=== PATIENT | female | born 1985 | race Caucasian/White ===

== ENCOUNTER 2020-09-28 20:59 | Inpatient (IN) | payer OTHER ==
[~2020-09-28] VITALS: Ht 154.9 cm; Wt 56.2 kg
[2020-09-28 21:12] VITALS: BP 154/101
[2020-09-28 23:33] LABS: HEMATOCRIT 54.3 % (37.0-47.0); MEAN CELL VOLUME 96.3 fl (81.0-99.0); MEAN CORPUSCULAR HGB 31.7 pg (27.0-31.0); MEAN PLATELET VOLUME 8.9 fl (9.6-12.3); PLATELET COUNT AUTOMATED 376 10*3/uL (130-400); RED BLOOD COUNT 5.64 10*6/uL (4.10-5.10); RED CELL DISTRI WIDTH 13.2 % (0-14.5); WHITE BLOOD COUNT 15.7 10*3/uL (4.8-10.8)
[2020-09-28 23:48] LABS: ALBUMIN 3.9 gm/dl (3.1-4.5); ALKALINE PHOSPHATASE 150 U/L (45-117); BUN 11 mg/dl (7-24); CHLORIDE 101 mmol/L (98-107); CREATININE 0.85 mg/dL (0.55-1.02); POTASSIUM 4.2 mmol/L (3.5-5.1); SGOT/AST 18 IU/L (3-35); SGPT/ALT 31 U/L (12-78); SODIUM 128 mmol/L (136-145); TOTAL PROTEIN 8.7 gm/dL (6.4-8.2)
[2020-09-29 00:03] LABS: PLATELET SUFFICIENCY NORMAL (NORMAL); TOTAL CELLS COUNTED 100 #CELLS
[2020-09-29 00:17] LABS: BILIRUBIN Negative (Negative); BLOOD Trace-Lysed (Negative); CLARITY Clear (Clear); COLOR Yellow (Yellow); GLUCOSE 3+ (Negative); KETONE 4+ (Negative); LEUKO ESTERASE Negative (Negative); NITRITE Negative (Negative); SPECIFIC GRAVITY >= 1.030 (1.001-1.030); UROBILINOGEN 0.2 E.U./dl (0.0-1.0)
[2020-09-29 00:25] LABS: URINE AMPHETAMINES < 1000 (1000ng/ml); URINE BARBITURATES < 200 (200ng/ml); URINE BENZODIAZEPINES < 200 (200ng/ml); URINE CANNABINOIDS (THC) > 50 (50ng/ml); URINE COCAINE < 300 (300ng/ml); URINE METHADONE < 300 (300ng/ml); URINE OPIATES < 300 (300ng/ml); URINE PHENCYCLIDINE < 25 (25ng/ml)
[2020-09-29 00:28] LABS: BACTERIA TRACE
[2020-09-29 00:43] LABS: ARTERIAL BLOOD GAS PO2 127.3 (80-90)
[2020-09-29 00:44] LABS: ARTERIAL BLOOD GAS PH 7.076 (7.35-7.45)
[2020-09-29 00:45] LABS: ABG BASE EXCESS -24.4 mmol/L (-2.0-2.0)
[2020-09-29 03:00] VITALS: BP 145/82
[2020-09-29] MEDS ORDERED: Synthroid,Levo50 MCG PO (03:24)
[2020-09-29] MEDS ORDERED: LANTUS SOL100 UNIT/1 SC (03:26)
[2020-09-29] MEDS ORDERED: INSULIN LI100 UNIT/2 SC (03:30)
[2020-09-29 05:28] LABS: ALBUMIN 3.1 gm/dl (3.1-4.5); ALKALINE PHOSPHATASE 128 U/L (45-117); BUN 11 mg/dl (7-24); CHLORIDE 111 mmol/L (98-107); CHOLESTEROL 379 mg/dL (<200); CREATININE 0.64 mg/dL (0.55-1.02); SGOT/AST 11 IU/L (3-35); SGPT/ALT 25 U/L (12-78); SODIUM 133 mmol/L (136-145); TOTAL PROTEIN 7.4 gm/dL (6.4-8.2)
[2020-09-29 05:29] LABS: BUN 11 mg/dl (7-24); CHLORIDE 111 mmol/L (98-107); CREATININE 0.63 mg/dL (0.55-1.02); FREE T4 0.32 ng/dl (0.76-1.46); POTASSIUM 3.3 mmol/L (3.5-5.1); SODIUM 133 mmol/L (136-145)
[2020-09-29 05:30] LABS: POTASSIUM 3.2 mmol/L (3.5-5.1)
[2020-09-29 05:36] LABS: TRIGLYCERIDES 1175 mg/dl (<150)
[2020-09-29 06:35] LABS: BASO # 0.2 10*3/uL (0.0-0.1); BASO % 0.7 % (0.0-1.0); HEMATOCRIT 52.4 % (37.0-47.0); LYMPH # 1.7 10*3/uL (1.3-4.4); LYMPH % 6.8 % (27.0-41.0); MEAN CORPUSCULAR HGB 31.9 pg (27.0-31.0); MEAN CORPUSCULAR HGB CONC 31.5 g/dl (33.0-37.0); MEAN PLATELET VOLUME 8.6 fl (9.6-12.3); MONO # 1.1 10*3/uL (0.1-1.0); MONO % 4.6 % (3.0-9.0); NEUT # 20.8 10*3/uL (2.3-7.9); NEUT % 84.7 % (47.0-73.0); PLATELET COUNT AUTOMATED 321 10*3/uL (130-400); RED BLOOD COUNT 5.17 10*6/uL (4.10-5.10); RED CELL DISTRI WIDTH 13.3 % (0-14.5); WHITE BLOOD COUNT 24.5 10*3/uL (4.8-10.8)
[2020-09-29 06:39] LABS: MEAN CELL VOLUME 101.4 fl (81.0-99.0)
[2020-09-29 07:30] LABS: PLATELET SUFFICIENCY NORMAL (NORMAL); TOTAL CELLS COUNTED 100 #CELLS
[2020-09-29 08:00] VITALS: BP 120/87
[2020-09-29 08:44] LABS: BUN 10 mg/dl (7-24); CHLORIDE 115 mmol/L (98-107); CREATININE 0.62 mg/dL (0.55-1.02); POTASSIUM 3.4 mmol/L (3.5-5.1); SODIUM 136 mmol/L (136-145)
[2020-09-29 10:14] LABS: BUN 10 mg/dl (7-24); CHLORIDE 117 mmol/L (98-107); CREATININE 0.69 mg/dL (0.55-1.02); POTASSIUM 3.6 mmol/L (3.5-5.1); SODIUM 137 mmol/L (136-145)
[2020-09-29 12:00] VITALS: BP 114/82
[2020-09-29 13:47] LABS: BUN 9 mg/dl (7-24); CHLORIDE 113 mmol/L (98-107); CREATININE 0.59 mg/dL (0.55-1.02); POTASSIUM 4.2 mmol/L (3.5-5.1); SODIUM 132 mmol/L (136-145)
[2020-09-29 16:00] VITALS: BP 108/67
[2020-09-29 20:00] VITALS: BP 113/78
[2020-09-30] VITALS: BP 103/67
[2020-09-30 06:30] LABS: BASO % 0.3 % (0.0-1.0); EOS % 0.2 % (1.0-4.0); HEMATOCRIT 41.3 % (37.0-47.0); LYMPH # 2.6 10*3/uL (1.3-4.4); LYMPH % 22.1 % (27.0-41.0); MEAN CORPUSCULAR HGB 32.1 pg (27.0-31.0); MEAN CORPUSCULAR HGB CONC 35.4 g/dl (33.0-37.0); MEAN PLATELET VOLUME 8.7 fl (9.6-12.3); MONO # 1.1 10*3/uL (0.1-1.0); MONO % 9.1 % (3.0-9.0); NEUT % 67.3 % (47.0-73.0); PLATELET COUNT AUTOMATED 317 10*3/uL (130-400); RED BLOOD COUNT 4.55 10*6/uL (4.10-5.10); RED CELL DISTRI WIDTH 13.1 % (0-14.5); WHITE BLOOD COUNT 11.9 10*3/uL (4.8-10.8)
[2020-09-30 06:38] LABS: MEAN CELL VOLUME 90.8 fl (81.0-99.0)
[2020-09-30 06:42] LABS: ALBUMIN 2.8 gm/dl (3.1-4.5); BUN 6 mg/dl (7-24); CREATININE 0.49 mg/dL (0.55-1.02); SGOT/AST 10 IU/L (3-35); SGPT/ALT 17 U/L (12-78); SODIUM 133 mmol/L (136-145); TOTAL PROTEIN 6.4 gm/dL (6.4-8.2)
[2020-09-30 06:43] LABS: ALKALINE PHOSPHATASE 99 U/L (45-117)
[2020-09-30 06:49] LABS: CHLORIDE 105 mmol/L (98-107)
[2020-09-30 06:50] LABS: POTASSIUM 3.1 mmol/L (3.5-5.1)
[2020-09-30 08:00] VITALS: BP 113/79
[2020-09-30] MEDS ORDERED: ATORVASTATIN CA20 M1 PO (10:14)
[2020-09-30] MEDS ORDERED: HUMALOG100 UNIT/1 SC (10:14)
[2020-09-30] MEDS ORDERED: LANTUS SOL100 UNIT/1 SC (10:15)
[2020-09-30] MEDS ORDERED: Synthroid,Levo50 MCG PO (10:15)
[2020-09-30 12:00] VITALS: BP 112/74
[2020-09-30] MEDS ORDERED: ACCU-CHEK1 EAC2 MC (13:00)
[2020-09-30] MEDS ORDERED: GLUCTESTSTRIP SC (13:00)
[2020-09-30] MEDS ORDERED: TEST STRIPS1 EACH MC (13:00)
[2020-09-30 16:00] VITALS: BP 113/62
== END 2020-09-30 17:50 | disposition home or self-care (01) | DRG 420 ==
LOC: ED 20:59 → ICCU 09-29 01:21 → EDHOLD 09-29 01:21 → ICCU 09-29 02:26 → 5E 09-29 18:16
PROVIDERS: Emergency Medicine; Internal Medicine; Social Worker Clinical; ADMIT Student in an Organized Health Care Education/Training Program; ATTEND Student in an Organized Health Care Education/Training Program
DX: E10.10 Type 1 diabetes mellitus with ketoacidosis without coma (principal); E87.1 Hypo-osmolality and hyponatremia; E87.3 Alkalosis; D75.1 Secondary polycythemia; E83.51 Hypocalcemia; R74.8 Abnormal levels of other serum enzymes; D72.829 Elevated white blood cell count, unspecified; F12.10 Cannabis abuse, uncomplicated; E03.9 Hypothyroidism, unspecified; E78.5 Hyperlipidemia, unspecified; D75.89 Other specified diseases of blood and blood-forming organs; F17.210 Nicotine dependence, cigarettes, uncomplicated; Z71.6 Tobacco abuse counseling; Z91.19 Patient's noncompliance with other medical treatment and regimen; Z98.891 History of uterine scar from previous surgery; Z82.49 Family history of ischemic heart disease and other diseases of the circulatory system; Z88.1 Allergy status to other antibiotic agents; Z88.2 Allergy status to sulfonamides

== ENCOUNTER 2020-11-13 18:30 | Inpatient (IN) | payer OTHER ==
[~2020-11-13] VITALS: Ht 152.4 cm; Wt 40.9 kg
[2020-11-13] VITALS (13 sets, daily range): BP systolic 66–115; BP diastolic 38–73
[~2020-11-13 18:30] MED LIST: ACCU-CHEK1 EAC2 MC; ATORVASTATIN CA20 M1 PO; GLUCTESTSTRIP SC; HUMALOG100 UNIT/1 SC; INSULIN LI100 UNIT/2 SC; LANTUS SOL100 UNIT/1 SC; Synthroid,Levo50 MCG PO; TEST STRIPS1 EACH MC
[2020-11-13 19:41] LABS: HEMATOCRIT 46.3 % (37.0-47.0); MEAN CELL VOLUME 101.3 fl (81.0-99.0); MEAN CORPUSCULAR HGB 32.6 pg (27.0-31.0); MEAN CORPUSCULAR HGB CONC 32.2 g/dl (33.0-37.0); MEAN PLATELET VOLUME 9.7 fl (9.6-12.3); NUCLEATED RED BLOOD CELL 0.1 % (0.0-0.0); PLATELET COUNT AUTOMATED 267 10*3/uL (130-400); RED BLOOD COUNT 4.57 10*6/uL (4.10-5.10); RED CELL DISTRI WIDTH 14.8 % (0-14.5); WHITE BLOOD COUNT 20.6 10*3/uL (4.8-10.8)
[2020-11-13 20:06] LABS: BASOPHILS 1 % (0-1); PLATELET SUFFICIENCY NORMAL (NORMAL); TOTAL CELLS COUNTED 100 #CELLS
[2020-11-13 20:07] LABS: BURR CELLS FEW
[2020-11-13 20:11] LABS: ALBUMIN 2.9 gm/dl (3.1-4.5); ALKALINE PHOSPHATASE 216 U/L (45-117); BUN 22 mg/dl (7-24); CHLORIDE 109 mmol/L (98-107); CREATININE 1.17 mg/dL (0.55-1.02); POTASSIUM 3.9 mmol/L (3.5-5.1); SGOT/AST 31 IU/L (3-35); SODIUM 133 mmol/L (136-145); TOTAL PROTEIN 6.8 gm/dL (6.4-8.2)
[2020-11-13 20:12] LABS: ARTERIAL BLOOD GAS PO2 173.3 (80-90)
[2020-11-13 20:14] LABS: ABG BASE EXCESS -37.8 mmol/L (-2.0-2.0); ARTERIAL BLOOD GAS PH 6.565 (7.35-7.45)
[2020-11-13 20:15] LABS: TROPONIN I < 0.015 ng/ml (<0.045)
[2020-11-13 20:18] LABS: BILIRUBIN Negative (Negative); BLOOD Trace-Lysed (Negative); CLARITY Clear (Clear); COLOR Yellow (Yellow); GLUCOSE 3+ (Negative); KETONE 3+ (Negative); LEUKO ESTERASE Negative (Negative); NITRITE Negative (Negative); PH 5.5 (4.5-8.0); SPECIFIC GRAVITY 1.015 (1.001-1.030); UROBILINOGEN 0.2 E.U./dl (0.0-1.0)
[2020-11-13 20:27] LABS: URINE AMPHETAMINES < 1000 (1000ng/ml); URINE BARBITURATES < 200 (200ng/ml); URINE BENZODIAZEPINES < 200 (200ng/ml); URINE CANNABINOIDS (THC) < 50 (50ng/ml); URINE COCAINE < 300 (300ng/ml); URINE METHADONE < 300 (300ng/ml); URINE OPIATES < 300 (300ng/ml)
[2020-11-13 20:30] LABS: BACTERIA 2+
[2020-11-13 20:31] LABS: URINE PHENCYCLIDINE < 25 (25ng/ml)
[2020-11-13 21:25] LABS: ARTERIAL BLOOD GAS PO2 49.8 (80-90)
[2020-11-13 21:32] LABS: ABG BASE EXCESS -30.9 mmol/L (-2.0-2.0); ARTERIAL BLOOD GAS PH 6.871 (7.35-7.45)
[2020-11-13 21:35] LABS: SGPT/ALT 30 U/L (12-78)
[2020-11-13 23:09] LABS: BUN 24 mg/dl (7-24); CHLORIDE 110 mmol/L (98-107); CREATININE 1.09 mg/dL (0.55-1.02); POTASSIUM 3.5 mmol/L (3.5-5.1); SODIUM 138 mmol/L (136-145)
[2020-11-13 23:18] LABS: ARTERIAL BLOOD GAS PO2 112.1 (80-90)
[2020-11-13 23:19] LABS: ABG BASE EXCESS -31.8 mmol/L (-2.0-2.0)
[2020-11-13 23:21] LABS: ARTERIAL BLOOD GAS PH 6.851 (7.35-7.45)
[2020-11-14] VITALS (8 sets, daily range): BP systolic 91–123; BP diastolic 44–77
[2020-11-14 02:29] LABS: BUN 23 mg/dl (7-24); CHLORIDE 118 mmol/L (98-107); CREATININE 1.01 mg/dL (0.55-1.02); POTASSIUM 2.5 mmol/L (3.5-5.1); SODIUM 146 mmol/L (136-145)
[2020-11-14 04:49] LABS: HEMATOCRIT 39.7 % (37.0-47.0); MEAN CORPUSCULAR HGB 32.6 pg (27.0-31.0); MEAN PLATELET VOLUME 9.6 fl (9.6-12.3); NUCLEATED RED BLOOD CELL 0.1 % (0.0-0.0); PLATELET COUNT AUTOMATED 230 10*3/uL (130-400); RED BLOOD COUNT 4.27 10*6/uL (4.10-5.10); RED CELL DISTRI WIDTH 14.8 % (0-14.5); WHITE BLOOD COUNT 15.2 10*3/uL (4.8-10.8)
[2020-11-14 04:54] LABS: BUN 21 mg/dl (7-24); CHLORIDE 120 mmol/L (98-107); CREATININE 1.01 mg/dL (0.55-1.02); SODIUM 146 mmol/L (136-145)
[2020-11-14 05:00] LABS: ARTERIAL BLOOD GAS PH 7.27 (7.35-7.45); ARTERIAL BLOOD GAS PO2 75.7 (80-90)
[2020-11-14 05:02] LABS: ABG BASE EXCESS -19.9 mmol/L (-2.0-2.0)
[2020-11-14 05:07] LABS: POTASSIUM 2.3 mmol/L (3.5-5.1)
[2020-11-14 05:18] LABS: PLATELET SUFFICIENCY NORMAL (NORMAL); TOTAL CELLS COUNTED 100 #CELLS
[2020-11-14 05:19] LABS: BURR CELLS FEW; OVALOCYTES FEW
[2020-11-14 06:33] LABS: BUN 21 mg/dl (7-24); CHLORIDE 117 mmol/L (98-107); CREATININE 1.13 mg/dL (0.55-1.02); SODIUM 144 mmol/L (136-145)
[2020-11-14 06:38] LABS: POTASSIUM 2.2 mmol/L (3.5-5.1)
[2020-11-14 08:20] LABS: VITAMIN D, 25-HYDROXY 10.9 ng/mL (30-100)
[2020-11-14 08:30] LABS: BUN 17 mg/dl (7-24); CHLORIDE 115 mmol/L (98-107); CREATININE 1.05 mg/dL (0.55-1.02); POTASSIUM 2.8 mmol/L (3.5-5.1); SODIUM 142 mmol/L (136-145)
[2020-11-14 08:35] LABS: FREE T4 0.44 ng/dl (0.76-1.46)
[2020-11-14 08:42] LABS: THYROID STIM HORMONE (HS) 94.3 uIU/ml (0.358-4.75)
[2020-11-14 09:03] LABS: ABG BASE EXCESS -11.9 mmol/L (-2.0-2.0); ARTERIAL BLOOD GAS PH 7.372 (7.35-7.45); ARTERIAL BLOOD GAS PO2 85.9 (80-90)
[2020-11-14 10:11] LABS: BUN 17 mg/dl (7-24); CHLORIDE 114 mmol/L (98-107); CREATININE 0.88 mg/dL (0.55-1.02); POTASSIUM 3.7 mmol/L (3.5-5.1); SODIUM 142 mmol/L (136-145)
[2020-11-14 11:59] LABS: BUN 15 mg/dl (7-24); CHLORIDE 116 mmol/L (98-107); POTASSIUM 2.9 mmol/L (3.5-5.1); SODIUM 144 mmol/L (136-145)
[2020-11-14 14:20] LABS: BUN 13 mg/dl (7-24); CHLORIDE 116 mmol/L (98-107); CREATININE 0.77 mg/dL (0.55-1.02); SODIUM 144 mmol/L (136-145)
[2020-11-14 14:27] LABS: POTASSIUM 2.1 mmol/L (3.5-5.1)
[2020-11-14 21:10] LABS: BUN 10 mg/dl (7-24); CHLORIDE 115 mmol/L (98-107); CREATININE 0.71 mg/dL (0.55-1.02); SODIUM 142 mmol/L (136-145)
[2020-11-14 21:15] LABS: POTASSIUM 3.5 mmol/L (3.5-5.1)
[2020-11-15] VITALS: BP 107/80
[2020-11-15 04:00] VITALS: BP 104/84
[2020-11-15 07:36] LABS: BUN 4 mg/dl (7-24); CHLORIDE 103 mmol/L (98-107); CREATININE 0.57 mg/dL (0.55-1.02); POTASSIUM 2.6 mmol/L (3.5-5.1); SODIUM 133 mmol/L (136-145)
[2020-11-15 08:00] VITALS: BP 105/62
[2020-11-15 08:46] LABS: HEMATOCRIT 32.9 % (37.0-47.0); MEAN CORPUSCULAR HGB 32.6 pg (27.0-31.0); MEAN PLATELET VOLUME 9.5 fl (9.6-12.3); RED BLOOD COUNT 3.84 10*6/uL (4.10-5.10); RED CELL DISTRI WIDTH 14.6 % (0-14.5)
[2020-11-15 08:48] LABS: MEAN CELL VOLUME 85.7 fl (81.0-99.0); PLATELET COUNT AUTOMATED 160 10*3/uL (130-400)
[2020-11-15 09:19] LABS: PLATELET SUFFICIENCY NORMAL (NORMAL); TOTAL CELLS COUNTED 100 #CELLS
[2020-11-15 09:53] LABS: ALBUMIN 2.3 gm/dl (3.1-4.5); ALKALINE PHOSPHATASE 134 U/L (45-117); BUN 4 mg/dl (7-24); CHLORIDE 102 mmol/L (98-107); CREATININE 0.57 mg/dL (0.55-1.02); POTASSIUM 2.7 mmol/L (3.5-5.1); SGOT/AST 29 IU/L (3-35); SGPT/ALT 21 U/L (12-78); SODIUM 135 mmol/L (136-145)
[2020-11-15 12:00] VITALS: BP 96/66
[2020-11-15 16:00] VITALS: BP 110/72
[2020-11-15 16:33] LABS: BUN 4 mg/dl (7-24); CHLORIDE 99 mmol/L (98-107); CREATININE 0.57 mg/dL (0.55-1.02); POTASSIUM 3.1 mmol/L (3.5-5.1); SODIUM 133 mmol/L (136-145)
[2020-11-15 20:00] VITALS: BP 115/58
[2020-11-15 20:24] LABS: BUN 3 mg/dl (7-24); CHLORIDE 101 mmol/L (98-107); CREATININE 0.73 mg/dL (0.55-1.02); POTASSIUM 2.5 mmol/L (3.5-5.1); SODIUM 132 mmol/L (136-145)
[2020-11-15 23:41] LABS: BUN 3 mg/dl (7-24); CHLORIDE 104 mmol/L (98-107); CREATININE 0.56 mg/dL (0.55-1.02); POTASSIUM 2.9 mmol/L (3.5-5.1); SODIUM 135 mmol/L (136-145)
[2020-11-16] VITALS: BP 93/60
[2020-11-16 02:01] LABS: BUN 4 mg/dl (7-24); CHLORIDE 104 mmol/L (98-107); CREATININE 0.56 mg/dL (0.55-1.02); POTASSIUM 3.1 mmol/L (3.5-5.1); SODIUM 136 mmol/L (136-145)
[2020-11-16 04:08] LABS: BUN 6 mg/dl (7-24); CHLORIDE 104 mmol/L (98-107); CREATININE 0.64 mg/dL (0.55-1.02); SODIUM 133 mmol/L (136-145)
[2020-11-16 05:16] VITALS: BP 113/70
[2020-11-16 06:27] LABS: MEAN CELL VOLUME 88.3 fl (81.0-99.0); MEAN CORPUSCULAR HGB 32.5 pg (27.0-31.0); MEAN CORPUSCULAR HGB CONC 36.8 g/dl (33.0-37.0); MEAN PLATELET VOLUME 9.8 fl (9.6-12.3); PLATELET COUNT AUTOMATED 116 10*3/uL (130-400); RED BLOOD COUNT 3.85 10*6/uL (4.10-5.10); RED CELL DISTRI WIDTH 14.9 % (0-14.5); WHITE BLOOD COUNT 11.2 10*3/uL (4.8-10.8)
[2020-11-16 06:38] LABS: ALBUMIN 2.1 gm/dl (3.1-4.5); ALKALINE PHOSPHATASE 120 U/L (45-117); BUN 6 mg/dl (7-24); CHLORIDE 102 mmol/L (98-107); CREATININE 0.52 mg/dL (0.55-1.02); POTASSIUM 3.6 mmol/L (3.5-5.1); SGOT/AST 29 IU/L (3-35); SGPT/ALT 22 U/L (12-78); SODIUM 133 mmol/L (136-145)
[2020-11-16 06:58] LABS: BUN 6 mg/dl (7-24); CHLORIDE 103 mmol/L (98-107); CREATININE 0.53 mg/dL (0.55-1.02); POTASSIUM 3.6 mmol/L (3.5-5.1); SODIUM 135 mmol/L (136-145)
[2020-11-16 08:02] LABS: PLATELET SUFFICIENCY LOW (NORMAL); TOTAL CELLS COUNTED 100 #CELLS
[2020-11-16 08:29] LABS: BUN 7 mg/dl (7-24); CHLORIDE 101 mmol/L (98-107); CREATININE 0.57 mg/dL (0.55-1.02); POTASSIUM 3.3 mmol/L (3.5-5.1); SODIUM 133 mmol/L (136-145)
[2020-11-16 08:41] VITALS: BP 122/74
[2020-11-16 10:20] LABS: BUN 7 mg/dl (7-24); CHLORIDE 100 mmol/L (98-107); CREATININE 0.54 mg/dL (0.55-1.02); POTASSIUM 3.3 mmol/L (3.5-5.1); SODIUM 132 mmol/L (136-145)
[2020-11-16 12:00] VITALS: BP 92/58
[2020-11-16 14:28] LABS: BUN 7 mg/dl (7-24); CHLORIDE 102 mmol/L (98-107); CREATININE 0.53 mg/dL (0.55-1.02); POTASSIUM 3.3 mmol/L (3.5-5.1); SODIUM 134 mmol/L (136-145)
[2020-11-16 16:00] VITALS: BP 120/74
[2020-11-16 20:00] VITALS: BP 100/64; BP 105/59
[2020-11-16 22:23] LABS: BUN 7 mg/dl (7-24); CHLORIDE 105 mmol/L (98-107); CREATININE 0.51 mg/dL (0.55-1.02); POTASSIUM 4.1 mmol/L (3.5-5.1); SODIUM 135 mmol/L (136-145)
[2020-11-17] VITALS: BP 115/63
[2020-11-17 06:22] LABS: HEMATOCRIT 32.3 % (37.0-47.0); MEAN CORPUSCULAR HGB 32.1 pg (27.0-31.0); MEAN PLATELET VOLUME 9.9 fl (9.6-12.3); PLATELET COUNT AUTOMATED 83 10*3/uL (130-400); RED BLOOD COUNT 3.52 10*6/uL (4.10-5.10); RED CELL DISTRI WIDTH 15.3 % (0-14.5); WHITE BLOOD COUNT 9.1 10*3/uL (4.8-10.8)
[2020-11-17 06:28] LABS: BUN 7 mg/dl (7-24); CHLORIDE 102 mmol/L (98-107); CREATININE 0.64 mg/dL (0.55-1.02); POTASSIUM 3.2 mmol/L (3.5-5.1); SODIUM 134 mmol/L (136-145)
[2020-11-17 06:42] LABS: MEAN CELL VOLUME 91.8 fl (81.0-99.0)
[2020-11-17 07:46] LABS: PLATELET SUFFICIENCY LOW (NORMAL); TOTAL CELLS COUNTED 100 #CELLS
[2020-11-17 08:00] VITALS: BP 87/57
[2020-11-17 12:00] VITALS: BP 95/62
[2020-11-17 16:00] VITALS: BP 93/55
[2020-11-17 20:00] VITALS: BP 87/49
[2020-11-17 22:43] VITALS: BP 102/68
[2020-11-18] VITALS (7 sets, daily range): BP systolic 78–114; BP diastolic 38–59
[2020-11-18 06:51] LABS: HEMATOCRIT 30.2 % (37.0-47.0); MEAN CELL VOLUME 94.1 fl (81.0-99.0); MEAN CORPUSCULAR HGB 32.1 pg (27.0-31.0); MEAN CORPUSCULAR HGB CONC 34.1 g/dl (33.0-37.0); PLATELET COUNT AUTOMATED 79 10*3/uL (130-400); RED BLOOD COUNT 3.21 10*6/uL (4.10-5.10); WHITE BLOOD COUNT 4.3 10*3/uL (4.8-10.8)
[2020-11-18 07:06] LABS: ALBUMIN 1.5 gm/dl (3.1-4.5); BUN 5 mg/dl (7-24); CHLORIDE 99 mmol/L (98-107); CREATININE 0.51 mg/dL (0.55-1.02); POTASSIUM 3.1 mmol/L (3.5-5.1); SGOT/AST 32 IU/L (3-35); SGPT/ALT 21 U/L (12-78); SODIUM 133 mmol/L (136-145)
[2020-11-18 07:07] LABS: ALKALINE PHOSPHATASE 96 U/L (45-117); TOTAL PROTEIN 5.6 gm/dL (6.4-8.2)
[2020-11-18 07:11] LABS: ACT PARTIAL THROMBO TIME 38.6 SECONDS (20.0-32.1); INTERNATIONAL NORM RATIO 0.9 (2.0-3.5)
[2020-11-18 07:53] LABS: PLATELET SUFFICIENCY LOW (NORMAL); TOTAL CELLS COUNTED 100 #CELLS
[2020-11-19] VITALS (7 sets, daily range): BP systolic 86–106; BP diastolic 51–67
[2020-11-19 06:08] LABS: HEMATOCRIT 25.1 % (37.0-47.0); MEAN CELL VOLUME 95.4 fl (81.0-99.0); MEAN CORPUSCULAR HGB 31.9 pg (27.0-31.0); MEAN CORPUSCULAR HGB CONC 33.5 g/dl (33.0-37.0); MEAN PLATELET VOLUME 10.1 fl (9.6-12.3); PLATELET COUNT AUTOMATED 82 10*3/uL (130-400); RED BLOOD COUNT 2.63 10*6/uL (4.10-5.10); RED CELL DISTRI WIDTH 14.7 % (0-14.5); WHITE BLOOD COUNT 3.4 10*3/uL (4.8-10.8)
[2020-11-19 06:35] LABS: ALBUMIN 1.9 gm/dl (3.1-4.5); BUN 5 mg/dl (7-24); CHLORIDE 101 mmol/L (98-107); POTASSIUM 2.9 mmol/L (3.5-5.1); SGOT/AST 30 IU/L (3-35); SGPT/ALT 21 U/L (12-78); SODIUM 136 mmol/L (136-145); TOTAL PROTEIN 5.8 gm/dL (6.4-8.2)
[2020-11-19 06:40] LABS: ALKALINE PHOSPHATASE 91 U/L (45-117); CPK 64 U/L (26-192); LDH 319 U/L (84-246)
[2020-11-19 07:01] LABS: PLATELET SUFFICIENCY LOW (NORMAL); TOTAL CELLS COUNTED 100 #CELLS
[2020-11-19 07:02] LABS: BURR CELLS FEW; ROULEAUX SLIGHT
[2020-11-20] VITALS: BP 103/76
[2020-11-20 04:00] VITALS: BP 110/67
[2020-11-20 05:52] LABS: ALBUMIN 1.9 gm/dl (3.1-4.5); BUN 6 mg/dl (7-24); CHLORIDE 102 mmol/L (98-107); CREATININE 0.39 mg/dL (0.55-1.02); POTASSIUM 3.6 mmol/L (3.5-5.1); SGOT/AST 32 IU/L (3-35); SGPT/ALT 24 U/L (12-78); SODIUM 135 mmol/L (136-145); TOTAL PROTEIN 5.9 gm/dL (6.4-8.2)
[2020-11-20 05:59] LABS: ALKALINE PHOSPHATASE 105 U/L (45-117); CPK 45 U/L (26-192); LDH 297 U/L (84-246)
[2020-11-20 07:04] LABS: HEMATOCRIT 24.3 % (37.0-47.0); MEAN CELL VOLUME 97.2 fl (81.0-99.0); MEAN CORPUSCULAR HGB 32.4 pg (27.0-31.0); MEAN CORPUSCULAR HGB CONC 33.3 g/dl (33.0-37.0); RED CELL DISTRI WIDTH 14.9 % (0-14.5); WHITE BLOOD COUNT 8.3 10*3/uL (4.8-10.8)
[2020-11-20 07:17] LABS: PLATELET COUNT AUTOMATED 110 10*3/uL (130-400)
[2020-11-20 08:00] VITALS: BP 92/51
[2020-11-20 08:41] LABS: ATYPICAL LYMPHS 1 % (0-0); PLATELET SUFFICIENCY LOW (NORMAL); TOTAL CELLS COUNTED 100 #CELLS
[2020-11-20 12:00] VITALS: BP 104/66
[2020-11-20 16:00] VITALS: BP 112/75
[2020-11-20 20:00] VITALS: BP 114/73
[2020-11-21] VITALS: BP 121/83
[2020-11-21 04:00] VITALS: BP 110/63
[2020-11-21 06:27] LABS: HEMATOCRIT 25.4 % (37.0-47.0); MEAN CELL VOLUME 96.9 fl (81.0-99.0); MEAN CORPUSCULAR HGB 32.4 pg (27.0-31.0); MEAN CORPUSCULAR HGB CONC 33.5 g/dl (33.0-37.0); MEAN PLATELET VOLUME 9.5 fl (9.6-12.3); PLATELET COUNT AUTOMATED 122 10*3/uL (130-400); RED BLOOD COUNT 2.62 10*6/uL (4.10-5.10); RED CELL DISTRI WIDTH 14.6 % (0-14.5); WHITE BLOOD COUNT 6.6 10*3/uL (4.8-10.8)
[2020-11-21 06:34] LABS: CHLORIDE 97 mmol/L (98-107); POTASSIUM 3.3 mmol/L (3.5-5.1); SODIUM 132 mmol/L (136-145)
[2020-11-21 06:47] LABS: ALBUMIN 1.7 gm/dl (3.1-4.5); ALKALINE PHOSPHATASE 93 U/L (45-117); BUN 6 mg/dl (7-24); CREATININE 0.55 mg/dL (0.55-1.02); LDH 274 U/L (84-246); SGOT/AST 21 IU/L (3-35); SGPT/ALT 21 U/L (12-78)
[2020-11-21 07:58] LABS: ATYPICAL LYMPHS 1 % (0-0); TOTAL CELLS COUNTED 100 #CELLS
[2020-11-21 07:59] LABS: PLATELET SUFFICIENCY LOW (NORMAL); POLYCHROMASIA SLIGHT; SCHISTOCYTES FEW
[2020-11-21 08:00] VITALS: BP 112/58
[2020-11-21 08:37] LABS: CPK 22 U/L (26-192)
[2020-11-21 12:00] VITALS: BP 103/63
[2020-11-21 12:38] LABS: ABG BASE EXCESS 6.6 mmol/L (-2.0-2.0); ARTERIAL BLOOD GAS PH 7.485 (7.35-7.45); ARTERIAL BLOOD GAS PO2 209.3 (80-90)
[2020-11-21 16:00] VITALS: BP 103/68
[2020-11-21 20:00] VITALS: BP 103/70
[2020-11-22] VITALS: BP 113/72
[2020-11-22 04:00] VITALS: BP 104/65
[2020-11-22 07:11] LABS: RETICULOCYTE % 0.45 % (0.50-2.50)
[2020-11-22 07:19] LABS: ALBUMIN 1.6 gm/dl (3.1-4.5); ALKALINE PHOSPHATASE 93 U/L (45-117); BUN 13 mg/dl (7-24); CHLORIDE 102 mmol/L (98-107); CREATININE 0.49 mg/dL (0.55-1.02); LDH 270 U/L (84-246); POTASSIUM 3.9 mmol/L (3.5-5.1); SGOT/AST 19 IU/L (3-35); SGPT/ALT 22 U/L (12-78); SODIUM 138 mmol/L (136-145)
[2020-11-22 07:20] LABS: IRON 25 ug/dL (50-170)
[2020-11-22 07:21] LABS: HEMATOCRIT 24.3 % (37.0-47.0); MEAN CELL VOLUME 99.2 fl (81.0-99.0); MEAN CORPUSCULAR HGB 32.7 pg (27.0-31.0); MEAN CORPUSCULAR HGB CONC 32.9 g/dl (33.0-37.0); PLATELET COUNT AUTOMATED 99 10*3/uL (130-400); RED BLOOD COUNT 2.45 10*6/uL (4.10-5.10); RED CELL DISTRI WIDTH 14.6 % (0-14.5); WHITE BLOOD COUNT 6.6 10*3/uL (4.8-10.8)
[2020-11-22 07:31] LABS: TOTAL IRON BINDING CAPACITY 132 ug/dl (250-450)
[2020-11-22 08:00] VITALS: BP 107/72
[2020-11-22 08:13] LABS: BURR CELLS FEW; PLATELET SUFFICIENCY LOW (NORMAL); TOTAL CELLS COUNTED 100 #CELLS
[2020-11-22 12:00] VITALS: BP 109/75
[2020-11-22 16:00] VITALS: BP 120/80
[2020-11-22 20:00] VITALS: BP 124/88
[2020-11-23] VITALS: BP 122/78
[2020-11-23 00:45] VITALS: BP 96/60
[2020-11-23 01:00] VITALS: BP 74/35
== END 2020-11-23 04:50 | DRG 720 ==
LOC: ED 18:30 → ICCU 23:27 → EDHOLD 23:27 → ICCU 11-14 00:27 → 4E 11-16 19:34 → ICCU 11-18 11:45
PROVIDERS: Emergency Medicine; Hospitalist; Internal Medicine; Internal Medicine Hematology & Oncology; Registered Nurse; Student in an Organized Health Care Education/Training Program; ADMIT Student in an Organized Health Care Education/Training Program; ATTEND Student in an Organized Health Care Education/Training Program
PROC: 02HV33Z Insertion of Infusion Device into Superior Vena Cava, Percutaneous Approach (ICD-10-PCS; 2020-11-14)
PROC: B548ZZA Ultrasonography of Superior Vena Cava, Guidance (ICD-10-PCS; 2020-11-14)
PROC: 03HB33Z Insertion of Infusion Device into Right Radial Artery, Percutaneous Approach (ICD-10-PCS; 2020-11-14)
PROC: B34HZZZ Ultrasonography of Right Upper Extremity Arteries (ICD-10-PCS; 2020-11-14)
PROC: XW033E5 Introduction of Remdesivir Anti-infective into Peripheral Vein, Percutaneous Approach, New Technology Group 5 (ICD-10-PCS; 2020-11-19)
PROC: XW033H5 Introduction of Tocilizumab into Peripheral Vein, Percutaneous Approach, New Technology Group 5 (ICD-10-PCS; 2020-11-19)
PROC: 5A0935A Assistance with Respiratory Ventilation, Less than 24 Consecutive Hours, High Flow/Velocity Cannula (ICD-10-PCS; 2020-11-20)
PROC: 5A0945A Assistance with Respiratory Ventilation, 24-96 Consecutive Hours, High Flow/Velocity Cannula (ICD-10-PCS; principal; 2020-11-21)
PROC: 5A09357 Assistance with Respiratory Ventilation, Less than 24 Consecutive Hours, Continuous Positive Airway Pressure (ICD-10-PCS; 2020-11-21)
PROC: 5A12012 Performance of Cardiac Output, Single, Manual (ICD-10-PCS; 2020-11-23)
DX: A41.01 Sepsis due to Methicillin susceptible Staphylococcus aureus (principal); E10.11 Type 1 diabetes mellitus with ketoacidosis with coma; G93.41 Metabolic encephalopathy; U07.1 COVID-19; J96.00 Acute respiratory failure, unspecified whether with hypoxia or hypercapnia; E87.1 Hypo-osmolality and hyponatremia; N17.0 Acute kidney failure with tubular necrosis; E83.51 Hypocalcemia; E43 Unspecified severe protein-calorie malnutrition; E87.6 Hypokalemia; R31.1 Benign essential microscopic hematuria; E78.5 Hyperlipidemia, unspecified; I95.9 Hypotension, unspecified; R65.20 Severe sepsis without septic shock; D69.6 Thrombocytopenia, unspecified; D64.9 Anemia, unspecified; E83.39 Other disorders of phosphorus metabolism; E78.2 Mixed hyperlipidemia; J12.82 Pneumonia due to coronavirus disease 2019; Z88.2 Allergy status to sulfonamides; Z88.8 Allergy status to other drugs, medicaments and biological substances; Z82.49 Family history of ischemic heart disease and other diseases of the circulatory system; Z68.1 Body mass index [BMI] 19.9 or less, adult